=== PATIENT | male | born 2000 | race African-American/Black ===

== ENCOUNTER 2020-12-11 19:55 | Emergency (ER) | payer MEDICAID, OTHER ==
[~2020-12-11] VITALS: Ht 182.9 cm; Wt 92.1 kg
[2020-12-11 23:30] VITALS: BP 120/64
== END 2020-12-12 | disposition home or self-care (01) ==
LOC: ER 20:01
DX: U07.1 COVID-19 (principal); J18.8 Other pneumonia, unspecified organism; R53.83 Other fatigue
CPT/HCPCS: 71045